=== PATIENT | female | born 1985 | race Caucasian/White ===

== ENCOUNTER 2017-03-01 12:04 | Emergency (ER) | payer BC, MEDICAID, OTHER ==
[~2017-03-01] VITALS: Ht 154.9 cm; Wt 57.7 kg
[~2017-03-01 12:04] MED LIST: IBUP-974 PO
[2017-03-01 12:20] VITALS: BP 112/70
--- NOTE | 2017-03-01 12:44 | NUR ---
31/F BIB SELF C/O VAGINAL BLEEDING, PELVIC PAIN 10, GESTATION 6 WEEKS . DENIES N/V/D; SKIN IS PINK/WARM/DRY; AAOX4 WITH EVEN AND STEADY GAIT; LUNGS CLEAR BL; PATIENT STATES PAIN OF 4/10 AT THIS TIME; PATIENT POSITIONED FOR COMFORT; HOB ELEVATED; BEDRAILS UP X2; BED DOWN. ER MD MADE AWARE OF PT STATUS.
--- NOTE | 2017-03-01 13:10 | NUR ---
US AT BEDSIDE.
[2017-03-01 13:16] LABS: BASOPHILS # (AUTO) 0.3 K/uL (0.00-0.22); BASOPHILS % (AUTO) 4.3 % (0.0-2.0); EOSINOPHILS # (AUTO) 0.1 K/uL (0-0.4); EOSINOPHILS % (AUTO) 1.7 % (0.0-4.0); HEMATOCRIT 39.3 % (36-48); HEMOGLOBIN 13.5 g/dL (12.0-16.0); LYMPHOCYTES # (AUTO) 1.7 K/uL (2.5-16.5); LYMPHOCYTES % (AUTO) 24.1 % (20.5-51.1); MEAN CORPUSCULAR HEMOGLOBIN 31 pg (27-31); MEAN CORPUSCULAR HGB CONC 34 g/dL (33-37); MEAN CORPUSCULAR VOLUME 91 fL (80-94); MONOCYTES # (AUTO) 0.7 K/uL (0.8-1.0); NEUTROPHILS # (AUTO) 4.4 K/uL (1.8-7.7); NEUTROPHILS % (AUTO) 59.9 % (42.2-75.2); PLATELET COUNT (AUTO) 243 K/uL (140-450); RED BLOOD CELL COUNT(AUTO) 4.33 MIL/uL (4.20-5.40); WHITE BLOOD COUNT (AUTO) 7.2 K/uL (4.8-10.8)
[2017-03-01 13:46] LABS: BILIRUBIN,URINE NEGATIVE (NEGATIVE); BLOOD, URINE 3+ (NEGATIVE); COLOR,URINE YELLOW (YELLOW); LEUKOCYTE ESTERASE ,URINE NEGATIVE (NEGATIVE); NITRITE, URINE NEGATIVE (NEGATIVE); PH,URINE 6.5 (5.0-9.0); UGLUCOSE NEGATIVE (NEGATIVE)
[2017-03-01 14:31] LABS: APPEARANCE,URINE CLEAR (CLEAR)
[2017-03-01 14:32] LABS: RBC,URINE TOO NUMEROUS TO COUN /HPF (0-5); WBC,URINE NONE SEEN /HPF (0-5)
[2017-03-01 15:22] VITALS: BP 111/71
--- NOTE | 2017-03-01 15:22 | NUR ---
Patient discharged with v/s stable. Written and verbal after care instructions given and explained. Patient verbalized understanding. Ambulatory with steady gait. All questions addressed prior to discharge. Advised to follow up with PMD.
== END 2017-03-01 15:22 | disposition home or self-care (01) ==
LOC: MED 12:04
DX: O46.91 Antepartum hemorrhage, unspecified, first trimester (principal); Z79.899 Other long term (current) drug therapy; Z3A.01 Less than 8 weeks gestation of pregnancy
CPT/HCPCS: 36415; 76817; 81001; 84702; 85025; 86900; 86901; 99285; Q0092

== ENCOUNTER 2017-03-06 12:31 | Emergency (ER) | payer BC ==
[~2017-03-06] VITALS: Ht 154.9 cm; Wt 58.2 kg
[2017-03-06 12:39] VITALS: BP 111/79
--- NOTE | 2017-03-06 13:10 | NUR ---
Labs drawn and sent to lab.
--- NOTE | 2017-03-06 13:22 | NUR ---
Pt c/o vaginal bleeding x 4 days. Denies abd pain, vomitting, diarrhea. No vaginal drainage. Normal BM with soft/solid consistency. AOx4. Pt was asked to return to recheck hcg level. Breathing is even and unlabored. VSS. NAD
[2017-03-06 14:33] VITALS: BP 114/75
== END 2017-03-06 14:28 | disposition home or self-care (01) ==
LOC: MED 12:31
DX: O03.9 Complete or unspecified spontaneous abortion without complication (principal); Z79.899 Other long term (current) drug therapy
CPT/HCPCS: 36415; 81025; 84702; 99283